=== PATIENT | female | born 1985 | race Caucasian/White ===

== ENCOUNTER 2016-10-02 01:02 | Emergency (ER) | payer MEDICARE, OTHER | END 2016-10-02 03:37 | disposition home or self-care (01) | LOC: ER1 01:02 | DX: S81.812A Laceration without foreign body, left lower leg, initial encounter (principal); Z23 Encounter for immunization; Z87.891 Personal history of nicotine dependence; Z85.3 Personal history of malignant neoplasm of breast; W55.41XA Bitten by pig, initial encounter; Y92.009 Unspecified place in unspecified non-institutional (private) residence as the place of occurrence of the external cause | CPT/HCPCS: 12002; 90471; 90715; 99283 ==

== ENCOUNTER 2020-11-29 23:05 | Emergency (ER) | payer MEDICARE, OTHER ==
[2020-11-30] MEDS ORDERED: MUCINEX1200 MG PO (05:52)
== END 2020-11-30 07:59 | disposition home or self-care (01) ==
LOC: ER1 23:05
DX: Z23 Encounter for immunization (principal); U07.1 COVID-19; M06.9 Rheumatoid arthritis, unspecified
CPT/HCPCS: 99283; M0243; U0002

== ENCOUNTER → 2021-10-16 | Outpatient (CLI) | payer MEDICARE, OTHER ==
[~2021-10-16] MED LIST: MUCINEX1200 MG PO
[2021-10-16 14:57] LABS: HEMOGLOBIN 14.5 gm/dl (12.3-15.3); RED BLOOD COUNT 5.14 M/UL (4.00-5.10); WHITE BLOOD COUNT 5.8 K/UL (4.5-11.0)
[2021-10-16 15:27] LABS: BUN/CREATININE RATIO 22 (0-10)
[2021-10-17 08:13] LABS: ANTISTREPTOLYSIN O AB 146.1 IU/mL (0.0-200.0)
[2021-10-17 12:14] LABS: RHEUMATOID ARTHRITIS FACTOR <10.0 IU/mL (<14.0)
== END ==
LOC: LAB 13:48
PROVIDERS: Physician Assistant Medical
DX: M54.50 Low back pain, unspecified (principal); M54.6 Pain in thoracic spine; M25.552 Pain in left hip; M25.562 Pain in left knee; R53.83 Other fatigue; E11.9 Type 2 diabetes mellitus without complications; M40.56 Lordosis, unspecified, lumbar region; M48.07 Spinal stenosis, lumbosacral region; M47.816 Spondylosis without myelopathy or radiculopathy, lumbar region; M48.04 Spinal stenosis, thoracic region
CPT/HCPCS: 36415; 72072; 72110; 73502; 73564; 80053; 84443; 84550; 85027; 85652; 86038; 86060; 86140; 86431